=== PATIENT | male | born 1990 | race Caucasian/White ===

== ENCOUNTER 2021-08-27 19:09 | Emergency (ER) | payer OTHER ==
[2021-08-27] MEDS ORDERED: Lidocaine 1% 5 ML VIAL INJECT ONE (20:02)
[2021-08-27] MEDS ORDERED: Diphtheria,Pertussis(Acell),Tetanus Vaccine 0.5 ML Syringe IM ONE (20:03)
[2021-08-27] MEDS ORDERED: Bacitracin Oint 1 GM U/D Packet TOP ONE (20:51)
== END 2021-08-27 21:20 | disposition home or self-care (01) ==
LOC: JP.ED 19:09
DX: S61.213A Laceration without foreign body of left middle finger without damage to nail, initial encounter (principal); S61.215A Laceration without foreign body of left ring finger without damage to nail, initial encounter; Z23 Encounter for immunization; W31.2XXA Contact with powered woodworking and forming machines, initial encounter
CPT/HCPCS: 12002; 90471; 90715; 99281; 99282-25